=== PATIENT | female | born 1975 | race Caucasian/White ===

== ENCOUNTER 2017-06-14 17:16 | Emergency (ER) | payer OTHER ==
[~2017-06-14] VITALS: Ht 160 cm; Wt 94.8 kg
[~2017-06-14 17:16] MED LIST: FLEXERIL10 MG PO; IBUPROFEN800 M1 PO; IBUPROFEN800 MG PO; MOBIC15 M1 PO; MOTRIN800 MG PO; PROTONIX 40MG T40 MG PO; VALIUM5 M1 PO; VICODIN 300 MG-1 TAB PO; ZOFRAN ODT4 MG PO
[2017-06-14 17:19] VITALS: BP 149/94
--- NOTE | 2017-06-14 18:16 | ED ANIMAL BITE/WOUND CHECK ---
History of Present Illness General Chief Complaint: General Adult Stated Complaint: SENT BY WALK IN CLINIC ? NEEDS RABIES SHOT Source: patient Exam Limitations: no limitations Vital Signs & Intake/Output Vital Signs & Intake/Output Vital Signs Date Time Temp Pulse Resp B/P B/P Pulse O2 O2 Flow FiO2 Mean Ox Delivery Rate 06/14 1719 97.1 82 18 149/94 97 Room Air Allergies Coded Allergies: NO KNOWN ALLERGIES (06/18/16) Reconcile Medications No Known Home Medications Triage Note: PT STATES THAT SHE WAS BIT BY HER SISTER N ROSA MARIA DOG THIS AM, UNSURE IF UP TO DATE WITH SHOTS. WALK IN SENT HER TO DISCUSS RABIES SHOTS Triage Nurses Notes Reviewed? yes Onset: Abrupt Duration: hour(s): Timing: single episode today Injury Environment: home Is Injury an Animal Bite? Yes Animal Type: cat Context of Animal Attack: animals fighting Appearance of Animal: appeared well Animal Immunization Status: up to date Severity of Attack: bitten Severity: moderate : No Patient currently breastfeeds: No HPI: 41-year-old female presents emergency department following cat Bite earlier today. Patient states that she was seen and evaluated at urgent clinic and was given course of Augmentin to initiate however they told her she should report to the emergency department for possible rabies vaccine. Patient states that earlier today her [id number]'s dog and house cat were fighting and the cat got injured from dog bites, she removed the cat from the situation and the cat bit her hands. Cat is a house cat,known up-to-date on vaccines, cat Has been acting within normal limits for the past few days. The dog's vaccine status is unknown however dog did not bite or scratch patient, dog has been a patient has past 2 weeks and acting within normal limits. The patient's wounds were cleaned and bandaged at the urgent clinic today. Her tetanus status is up-to-date. The patient denies numbness, tingling, fevers, chills, abdominal pain, swelling of the skin. (YUSUF GOODE,TG ARRIOLA) Past History Travel History Traveled to [place] past 21 day No Medical History Any Pertinent Medical History? 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 No (TG GOLDBERG PA-C) Review of Systems Review of Systems Constitutional: Reports: no symptoms. EENTM: Reports: no symptoms. Respiratory: Reports: no symptoms. Cardiovascular: Reports: no symptoms. GI: Reports: no symptoms. Genitourinary: Reports: no symptoms. Musculoskeletal: Reports: see HPI. Skin: Reports: see HPI. Neurological/Psychological: Reports: no symptoms. Hematologic/Endocrine: Reports: no symptoms. Immunologic/Allergic: Reports: no symptoms. All Other Systems: Reviewed and Negative (TG GOLDBERG PA-C) Physical Exam Physical Exam General Appearance: well developed/nourished, no apparent distress, alert, awake Head: atraumatic, normal appearance Eyes: Bilateral: normal appearance. Ears, Nose, Throat: hearing grossly normal Neck: normal inspection, supple, full range of motion Respiratory: no respiratory distress Back: normal inspection, normal range of motion Extremities: normal range of motion, lacerations over right thumb and palmar aspect of bilateral hands Neurologic/Psych: no motor/sensory deficits, awake, alert, oriented x 3 Skin: lacerations as above (TG GOLDBERG PA-C) Progress Differential Diagnosis: abscess, cellulitis, cat bite, laceration Plan of Care: Patient discussed with Dr. Baker. Rabbies vaccination not necessary at this time given bite from cat who is up-to-date on immunizations. The patient was prescribed course of oral Augmentin for cat bite by urgent care clinic. Instructed to take her antibiotics as prescribed, Motrin or Tylenol as needed for pain. The patient was instructed to monitor for signs and symptoms of infection and return with any increased swelling, red streaking up arm, cloudy drainage from her wounds. She will keep her wounds clean and dry. The patient will follow-up with her primary care doctor. The patient is in No acute distress, her vital signs are stable, she is well-appearing. The patient is in agreement with the plan of care. (TG GOLDBERG PA-C) Departure Departure Disposition: HOME OR SELF CARE Condition: Stable Clinical Impression Primary Impression: Cat bite Referrals: MARS VERA MD (PCP/Family) Additional Instructions: Take full course of antibiotics as prescribed by urgent care, take first dose tonight. Keep wounds clean and dry. Follow-up with her primary care doctor, call to inform them that you're seen and evaluated. Return with worsening concerns or concerns. Monitor for signs of worsening infection including spreading redness up the arm, increasing swelling, increasing pain. Please note that there might be incidental findings in your evaluation that are unrelated to the current emergency department visit. Please notify your primary care doctor about this emergency department visit in order to obtain and review all of the testing performed so that these incidental findings can be monitored as needed. If you're unable to follow up as outlined in the discharge instructions please return to the emergency department. Thank you for choosing the [facility] Emergency Department for your care. It was a pleasure to serve you today. Departure Forms: Customer Survey General Discharge Information Prescriptions: Current Visit Scripts No Known Home Medications (YUSUF GOODE,TG ARRIOLA) PA/SERVICE CAR DRIVER Co-Sign Statement Statement: ED Attending supervision documentation- [] I saw and evaluated the patient. I have also reviewed all the pertinent lab results and diagnostic results. I agree with the findings and the plan of care as documented in the PA's/SERVICE CAR DRIVER's documentation. [X] I have reviewed the ED Record and agree with the PA's/SERVICE CAR DRIVER's documentation. [] Additions or exceptions (if any) to the PAs/SERVICE CAR DRIVER's note and plan are summarized below: [] (YURIDIA ELLIS,JOSE ANGEL)
[2017-06-15] MEDS ORDERED: KLONOPIN0.5 M1 PO (15:26)
== END 2017-06-15 15:40 ==
LOC: ERH 17:16
DX: S61.451A Open bite of right hand, initial encounter (principal); S61.452A Open bite of left hand, initial encounter; W55.01XA Bitten by cat, initial encounter; Y93.89 Activity, other specified; Y92.009 Unspecified place in unspecified non-institutional (private) residence as the place of occurrence of the external cause
CPT/HCPCS: 99282

== ENCOUNTER 2017-06-15 13:21 | Emergency (ER) | payer OTHER ==
[~2017-06-15] VITALS: Ht 157.5 cm; Wt 94.8 kg
--- NOTE | 2017-06-15 13:45 | ED CARDIAC/CP/PALPITATIONS ---
History of Present Illness General Chief Complaint: General Adult Stated Complaint: ?PANIC ATTACK ?TIGHTNESS IN CHEST Source: patient Exam Limitations: no limitations Vital Signs & Intake/Output Vital Signs & Intake/Output Vital Signs Date Time Temp Pulse Resp B/P B/P Pulse O2 O2 Flow FiO2 Mean Ox Delivery Rate 06/15 1541 96.5 73 18 136/89 99 Room Air 06/15 1539 Room Air 06/15 1326 95.6 80 18 128/85 98 Room Air Allergies Coded Allergies: NO KNOWN ALLERGIES (06/18/16) Reconcile Medications Clonazepam (Klonopin) 0.5 MG TABLET 1 TAB PO BIDP PRN Anxiety Triage Note: C/O CHEST PAIN WITH TIGHTNESS SINCE THIS AM. STATES SHE WAS HERE YESTERDAY AFTER BIT BY CAT. ALSO REPORTS A DOG SHE WAS CARING FOR, KILLED HER CAT AND IS CAUSING HER TO FEEL ANXIOUS. Triage Nurses Notes Reviewed? yes : No Patient currently breastfeeds: No HPI: 41 yo F PMH panic disorder presenting with chest tightness. Patient woke up this morning with chest tightness, precordial, radiating across the anterior chest, mild to moderate intensity, constant with fluctuating intensity, relieved by "deep breathing and things that take my mind off my stress", nonexertional, nonpleuritic. Associated mild shortness of breath. Patient attributes chest tightness to stress and anxiety, states consistent with previous anxiety attacks , yesterday a dog the patients was caring for for a family member attacked her cat and killed it violently, patient endorses significant increase life stress related to this incident. Sustained bites to right fingers, left palm, started on augmentin yesterday. Patient states that she has a history of generalized anxiety disorder, has discussed medications with her primary care physician will prefer not to be on a medication daily. Denies fevers, chills, cough or URI symptoms, palpitations, wheezing, lower extremity swelling or pain, recent immobility or hospitalization, OCPs or exogenous estrogens, history of DVT/PE, abdominal symptoms, urinary symptoms, headache or focal neurologic symptoms. No PMH of HTN, HLD, DM, itnermittent smoker for 10-15 years, quit 10 years ago, no FH of CAD/MS or sudden . (BERNADETTE ELLIS,CRYSTAL) Past History Travel History Traveled to [place] past 21 day No Medical History Any Pertinent Medical History? 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 Yes (CRYSTAL FLEMING MD) Review of Systems Review of Systems Constitutional: Reports: no symptoms. EENTM: Reports: no symptoms. Respiratory: Reports: see HPI, short of breath. Cardiovascular: Reports: see HPI, chest pain. GI: Reports: no symptoms. Genitourinary: Reports: no symptoms. Musculoskeletal: Reports: no symptoms. Skin: Reports: no symptoms. Neurological/Psychological: Reports: no symptoms. Hematologic/Endocrine: Reports: no symptoms. Immunologic/Allergic: Reports: no symptoms. All Other Systems: Reviewed and Negative (CRYSTAL FLEMING MD) Physical Exam Physical Exam General Appearance: well developed/nourished, no apparent distress, alert, awake , anxious Head: atraumatic Eyes: Bilateral: PERRL, EOMI. Ears, Nose, Throat: moist mucus membranes Neck: normal inspection, full range of motion Respiratory: normal breath sounds, no respiratory distress, lungs clear Cardiovascular: regular rate/rhythm, normal peripheral pulses Peripheral Pulses: 2+ radial (R), 2+ radial (L), 2+ dorsalis pedis (R), 2+ dorsalis pedis (L) Gastrointestinal: normal bowel sounds, soft, non-tender Neurologic/Psych: no motor/sensory deficits, awake, alert, oriented x 3 Comments: Pulmonary: Lungs clear to auscultation bilaterally without wheezes Skin: Punctate bite keller to right second and third fingers, mildly erythematous without significant swelling or purulent drainage, punctate bite ekller to left thenar eminence, mild erythema and swelling without purulent drainage Lower Extremities: No swelling or tenderness to palpation bilaterally Core Measures ACS in differential dx? Yes Severe Sepsis Present: No Septic Shock Present: No (CRYSTAL FLEMING MD) Progress Differential Diagnosis: AMI, aortic dissection, atrial fibrillation, cholecystitis, CHF/pulm edema, costochondritis, hyperkalemia, hypovolemia, hyperthyroid, hyperventilation, intracranial hemorrhage, musculoskeletal pain, myocarditis, pancreatitis, pericarditis, pneumonia, pneumothorax, PSVT, pulmonary embolism, PUD/GERD, PVCs/PACs, respiratory failure, rib fracture, sepsis, unstable angina, V-fib/V-Tach, WPW syndrome Plan of Care: Orders Procedure Date/time Status EKG 06/15 1330 Active Physician MDM: 41 yo F PMH panic disorder presenting with chest tightness. VSS, exam as above. DDx: Pericarditis, PTX, Stress/Anxiety, MSK, GERD, low concern for ACS (given age and only 1 risk factor of smoking Hx), less likely abx allergy given clear lungs, low concern for PE (Wells 0, PERC 0), low concern for aortic or esophageal catastrophy. EKG sinus rhythm, unchanged from previous, nonischemic. Chest x-ray without focal consolidation or airspace disease. On reexamination chest pain significant improved without intervention. Discussed overall low concern for ACS with patient who is reassured by normal EKG and chest x-ray, using a shared decision making strategy the patient and I decided to forego blood work/troponins and further diagnostic testing, with the caveat that the patient return to the emergency department for new, worsening, ongoing, or concerning symptoms. Patient drove herself to the ED, would prefer to hold benzodiazepines here, discharged with small prescription for clonazepam to trial for symptoms at home. Discharged with return precautions, plan to follow up with PMD in the next 2-3 days for further evaluation of medications for generalized anxiety disorder. The plan of care was discussed with the patient who is comfortable with the plan and expressed agreement and understanding. (BERNADETTE ELLIS,CRYSTAL) Initial ED EKG: normal sinus rhythm (CRYSTAL FLEMING MD) Departure Departure Disposition: HOME OR SELF CARE Condition: Stable Clinical Impression Primary Impression: Chest pain Referrals: MARS VERA MD (PCP/Family) Additional Instructions: Try ibuprofen or Tylenol as needed for chest pain. Try clonazepam for anxiety symptoms. Follow-up with your primary care physician in the next 2-3 days to discuss medications for panic disorder. Return to the emergency department for any new, worsening, or concerning symptoms. Departure Forms: Customer Survey General Discharge Information Prescriptions: Current Visit Scripts Clonazepam (Klonopin) 1 TAB PO BIDP PRN Anxiety #8 TAB (CRYSTAL FLEMING MD) PA/CORROSION CONTROL ENGINEER Co-Sign Statement Statement: ED Attending supervision documentation- [] I saw and evaluated the patient. I have also reviewed all the pertinent lab results and diagnostic results. I agree with the findings and the plan of care as documented in the PA's/CORROSION CONTROL ENGINEER's documentation. [X] I have reviewed the ED Record and agree with the PA's/CORROSION CONTROL ENGINEER's documentation. [] Additions or exceptions (if any) to the PAs/CORROSION CONTROL ENGINEER's note and plan are summarized below: [] (YURIDIA ELLIS,JOSE ANGEL) Critical Care Note Critical Care Note Critical Care Time: non-applicable (BERNADETTE ELLIS,CRYSTAL)
--- NOTE | 2017-06-15 14:53 | RADIOLOGY REPORT ---
EXAMINATION: XR CHEST CLINICAL INFORMATION: Chest tightness. Presumptive diagnosis of pneumonia or pneumothorax. COMPARISON: Several prior chest x-rays, most recent of which is dated 11/19/2010. TECHNIQUE: 2 views of the chest were obtained. FINDINGS: The cardiomediastinal silhouette is within normal limits in size. Lungs bilaterally are symmetrically expanded and clear. No effusion or pneumothorax is seen. Bony structures are unremarkable. Right upper quadrant malik in place from prior cholecystectomy. IMPRESSION: No acute cardiopulmonary process. No evidence of pneumonia or pneumothorax.
[2017-06-15] MEDS ORDERED: KLONOPIN0.5 M1 PO (15:26)
[2017-06-15 15:41] VITALS: BP 136/89
== END 2017-06-15 15:42 ==
LOC: ERH 13:21
DX: R07.9 Chest pain, unspecified (principal)
CPT/HCPCS: 93005; 93010